=== PATIENT | male | born 1975 | race Caucasian/White ===

== ENCOUNTER 2016-06-26 11:31 | Emergency (ER) | payer SELFPAY ==
[2016-06-26 13:25] LABS: Basophils # (A) 0.1 k/uL (0-0.2); Basophils % (A) 1 %; CH 21.6; CHCM 32.1; Eosinophils # (A) 0.2 k/uL (0-0.7); Eosinophils % (A) 3 %; HCT 50.6 % (39.0-53.0); HDW 3.04; HGB 15.4 gm/dL (13.0-17.5); Hypochromasia Slight; Luc # (Auto) 0.11; Luc % (Auto) 2; Lymphocytes # (A) 1.9 k/uL (1.0-4.8); Lymphocytes % (A) 29 %; MCH 20.8 pg (25.0-35.0); MCHC 30.5 g/dL (31.0-37.0); Microcytosis Marked; Monocytes # (A) 0.4 k/uL (0-1.0); Monocytes % (A) 6 %; Neutrophils # (A) 3.8 k/uL (1.3-7.7); Neutrophils % (A) 59 %; RDW 14.9 % (11.5-15.5); WBC 6.4 k/uL (3.8-10.6); WBC (Perox) 6.21
--- NOTE | 2016-06-26 13:39 | XR ---
EXAMINATION TYPE: XR KUB DATE OF EXAM: 06/26/2016 1:30 PM COMPARISON: NONE HISTORY: Constipation TECHNIQUE: 3 views FINDINGS: The bowel gas pattern is normal. There is no sign of intestinal obstruction or pneumoperito neum. Fecal pattern is normal. There is no sign of a mass. Lung bases are clear. There is spurring in the lumbar spine. IMPRESSION: Nonacute abdomen.
--- NOTE | 2016-06-26 13:40 | XR ---
EXAMINATION TYPE: XR lumbosacral spine min 4V DATE OF EXAM: 06/26/2016 1:30 PM COMPARISON: NONE HISTORY: Constipation. Back pain. TECHNIQUE: 5 views FINDINGS: The lumbar vertebra have normal alignment. There is large hypertrophic spurring anteriorly at L3-4 L4-5 L5-S1. There is no compression fracture. Posterior elements are intact. Sacroiliac joint s are normal. There is mild narrowing of disc spaces in the lower lumbar spine. IMPRESSION: Spondylotic changes. No fracture.
[2016-06-26 13:44] LABS: ALT 49 U/L (21-72); AST 29 U/L (17-59); Alkaline Phosphatase 105 U/L (38-126); Amylase 46 U/L (30-110); Anion Gap 10 mmol/L; Blood Urea Nitrogen 15 mg/dL (9-20); Calcium 9.6 mg/dL (8.4-10.2); Carbon Dioxide 26 mmol/L (22-30); Chloride 105 mmol/L (98-107); Glucose 92 mg/dL (74-99); Non-African American GFR(MDRD) >60 (>60 ml/min/1.73 sqM); Potassium 4.5 mmol/L (3.5-5.1); Sodium 141 mmol/L (137-145); Total Protein 7.4 g/dL (6.3-8.2)
[2016-06-26 13:55] LABS: RBC 7.58 m/uL (4.30-5.90)
--- NOTE | 2016-06-26 14:05 | ED ---
Abdominal Pain HPI - General Chief Complaint: Abdominal Pain Stated Complaint: constipated Time Seen by Provider: 06/26/16 12:42 Source: patient, RN notes reviewed Mode of arrival: ambulatory Limitations: no limitations - History of Present Illness Initial Comments: This a 40-year-old male presents emergency Department chief complaint constipation, low back pain, leg pain. Patient states that he's been having increased pain over the last few months. Patient states that he cannot have a good bowel movement. Patient states she's been taken [id number] laxatives no relief. Patient denies any fever, chills. Patient states his abdominal cramping for a mild. Patient denies any nausea vomiting. Denies fever, chills, dysuria, hematuria. Patient states that recently his dosage of low back pain and rates into his thigh regions and some into his calf. Patient denies any swelling or change in color. Patient states that he has not had any recent lab work or any evaluation by primary care physician. Patient denies chest pain or shortness of breath. - Related Data Home Medications Medication Instructions Recorded Confirmed Aspirin EC [Ecotrin Low Dose] 81 mg PO DAILY 06/26/16 06/26/16 Previous Rx's Medication Instructions Recorded Sodium Chloride/Nahco3/KCl/Peg 4,000 ml PO ONCE #1 bottle 06/26/16 [Peg-3350 Solution] Allergies Allergy/AdvReac Type Severity Reaction Status Date / Time Penicillins Allergy Unknown Verified 06/26/16 13:00 Childhood Review of Systems ROS Statement: Those systems with pertinent positive or pertinent negative responses have been documented in the HPI. ROS Other: All systems not noted in ROS Statement are negative. Past Medical History Past Medical History: No Reported History History of Any Multi-Drug Resistant Organisms: None Reported Past Surgical History: Orthopedic Surgery Past Psychological History: No Psychological Hx Reported Smoking Status: Current every day smoker Past Alcohol Use History: Occasional Past Drug Use History: None Reported General Exam Limitations: no limitations General appearance: alert, in no apparent distress Head exam: Present: atraumatic, normocephalic, normal inspection Respiratory exam: Present: normal lung sounds bilaterally. Absent: respiratory distress, wheezes, rales, rhonchi, stridor Cardiovascular Exam: Present: regular rate, normal rhythm, normal heart sounds. Absent: systolic murmur, diastolic murmur, rubs, gallop, clicks GI/Abdominal exam: Present: soft, normal bowel sounds. Absent: distended, tenderness, guarding, rebound, rigid Extremities exam: Present: normal inspection, full ROM, normal capillary refill , other (Lower extremity strength equal bilateral 5/5 negative straight leg raise, pedal pulses equal bilaterally leukocoria equal warmth). Absent: tenderness, pedal edema, joint swelling, calf tenderness Back exam: Present: full ROM, tenderness, vertebral tenderness (Mild L4-L5 tenderness). Absent: CVA tenderness (R), CVA tenderness (L), muscle spasm, paraspinal tenderness Neurological exam: Present: alert, oriented X3, CN II-XII intact Psychiatric exam: Present: normal affect, normal mood Skin exam: Present: warm, dry, intact, normal color. Absent: rash Course Vital Signs 06/26/16 11:34 Temperature 98.1 F Pulse Rate 90 Respiratory 20 Rate Blood Pressure 170/100 O2 Sat by Pulse 98 Oximetry Medical Decision Making - Medical Decision Making 40-year-old male presented for abdominal pain and back pain. Patient has a large spur noted to lumbar spine. Patient referred to Dr. Dominguez. Patient also has elevated RBC count with microcytic appearance. Patient referred to Dr. Shah for possible polycythemia vera - Lab Data Result diagrams: 06/26/16 13:05 06/26/16 13:05 Lab Results 06/26/16 06/26/16 06/26/16 Range/Units 13:05 13:05 14:00 WBC 6.4 (3.8-10.6) k/uL RBC 7.58 H (4.30-5.90) m/uL Hgb 15.4 (13.0-17.5) gm/dL Hct 50.6 (39.0-53.0) % MCV 68.0 L (80.0-100.0) fL MCH 20.8 L (25.0-35.0) pg MCHC 30.5 L (31.0-37.0) g/dL RDW 14.9 (11.5-15.5) % Plt Count 174 (150-450) k/uL Neutrophils % 59 % Lymphocytes % 29 % Monocytes % 6 % Eosinophils % 3 % Basophils % 1 % Neutrophils # 3.8 (1.3-7.7) k/uL Lymphocytes # 1.9 (1.0-4.8) k/uL Monocytes # 0.4 (0-1.0) k/uL Eosinophils # 0.2 (0-0.7) k/uL Basophils # 0.1 (0-0.2) k/uL Manual Slide Review Performed Hypochromasia Slight Poikilocytosis (manual Present Microcytosis Marked Sodium 141 (137-145) mmol/L Potassium 4.5 (3.5-5.1) mmol/L Chloride 105 (98-107) mmol/L Carbon Dioxide 26 (22-30) mmol/L Anion Gap 10 mmol/L BUN 15 (9-20) mg/dL Creatinine 0.80 (0.66-1.25) mg/dL Est GFR (MDRD) Af Amer >60 (>60 ml/min/1.73 sqM) Est GFR (MDRD) Non-Af >60 (>60 ml/min/1.73 sqM) Glucose 92 (74-99) mg/dL Calcium 9.6 (8.4-10.2) mg/dL Total Bilirubin 1.0 (0.2-1.3) mg/dL AST 29 (17-59) U/L ALT 49 (21-72) U/L Alkaline Phosphatase 105 (38-126) U/L Total Protein 7.4 (6.3-8.2) g/dL Albumin 4.3 (3.5-5.0) g/dL Amylase 46 (30-110) U/L Lipase 59 (23-300) U/L Urine Color Yellow Urine Appearance Clear (Clear) Urine pH 6.0 (5.0-8.0) Ur Specific [place] 1.016 (1.001-1.035) Urine Protein 1+ H (Negative) Urine Glucose (UA) Negative (Negative) Urine Ketones Negative (Negative) Urine Blood Negative (Negative) Urine Nitrate Negative (Negative) Urine Bilirubin Negative (Negative) Urine Urobilinogen <2.0 (<2.0) mg/dL Ur Leukocyte Esterase Negative (Negative) Urine RBC <1 (0-5) /hpf Urine WBC <1 (0-5) /hpf Urine Mucus Rare H (None) /hpf Disposition Clinical Impression: Constipation, Lumbar radiculopathy, acute, Elevated red blood cell count, Microcytic red blood cells Disposition: HOME SELF-CARE Condition: Stable Instructions: Lumbar Radiculopathy (ED), Anemia (ED) Additional Instructions: Please return to the Emergency Department if symptoms worsen or any other concerns. Prescriptions: Sodium Chloride/Nahco3/KCl/Peg [Peg-3350 Solution] 4,000 ml PO ONCE #1 bottle Referrals: None,Stated [Primary Care Provider] - 1-2 days Ariel Shah MD [STAFF PHYSICIAN] - 1-2 days Jaswant Fields DO [Doctor of Osteopathic Medicine] - 1-2 days Time of Disposition: 14:44
[2016-06-26 14:18] LABS: Appearance,Urine Clear (Clear); Bilirubin,Urine Negative (Negative); Glucose,Urine (UA) Negative (Negative); Ketones,Urine Negative (Negative); Leukocyte Esterase,Urine Negative (Negative); Mucus,Urine Rare /hpf; Nitrite,Urine Negative (Negative); Particle Count 1223; Protein,Urine 1+ (Negative); RBC,Urine <1 /hpf (0-5); Specific Gravity,Urine 1.016 (1.001-1.035); UA Billing (MACRO vs. MICRO) MICRO; Urobilinogen,Urine <2.0 mg/dL (<2.0); WBC,Urine <1 /hpf (0-5)
[2016-06-26 14:22] LABS: Manual Review Performed
[2016-06-26 14:51] VITALS: BP 146/89; PULSE 81; RESP 16; TEMP 98.2
== END 2016-06-26 15:00 | disposition home or self-care (01) ==
LOC: EC 11:31
DX: M54.16 Radiculopathy, lumbar region (principal); K59.00 Constipation, unspecified; R10.9 Unspecified abdominal pain; D64.9 Anemia, unspecified; F17.200 Nicotine dependence, unspecified, uncomplicated; Z79.82 Long term (current) use of aspirin; Z88.0 Allergy status to penicillin
CPT/HCPCS: 36415; 72110; 74000; 80053; 81001; 82150; 83690; 85025; 99284